=== PATIENT | female | born 1960 | race Caucasian/White ===

== ENCOUNTER 2017-01-01 07:29 | Inpatient (IN) | payer OTHER ==
[2016-12-30 11:25] LABS: Urine RBC None Seen /hpf (0 - 4)
[2016-12-30 11:34] LABS: Urine Bilirubin Negative (Negative); Urine Blood Negative /uL (Negative); Urine Color Straw (Yellow); Urine Glucose Normal (Normal); Urine Ketone Negative (Negative); Urine Nitrite Negative (Negative); Urine Squamous Epithelial Cell FEW /hpf (<5); Urine Urobilinogen Normal (Negative)
[2016-12-30 11:52] LABS: Basophils # (auto) 0 uL; Basophils % (auto) 0.3 % (0.0-2.0); CONDITION Y; Eosinophils # (auto) 0.1 uL; Eosinophils % (auto) 2.1 % (0.0-7.0); Hematocrit 48.1 % (36.0-46.0); Lymphocytes # (auto) 1.4 uL; Lymphocytes % (auto) 19.7 % (10.0-50.0); Mean Corpuscular Hemoglobin 32.6 pg (28.0-32.0); Mean Corpuscular Hgb Conc. 34.6 g/dL (32.0-36.0); Mean Corpuscular Volume 94.1 fL (80.0-100.0); Mean Platelet Volume 9.1 fL (7.4-10.4); Monocytes # (auto) 0.4 uL; Monocytes % (auto) 5.7 % (0.0-12.0); Neutrophils % (auto) 72.2 % (37.0-80.0); Platelet Count (auto) 255 10^3/uL (140-450); Red Cell Distribution Width 13.7 % (11.6-16.0); White Blood Cell 6.9 10^3/uL (4.4-10.8)
[2016-12-30 11:53] LABS: Hemoglobin 16.5 g/dL (12.2-16.2)
[2016-12-30 12:08] LABS: INR 0.95 (0.9-1.15); Partial Thromboplastin Time 26.6 sec (22.64-33.71); Prothrombin Time 10.4 sec (9.37-12.3)
[2016-12-30 12:09] LABS: Albumin 4.4 g/dL (3.4-5.0); BUN/Creatinine Ratio 14.1; Bilirubin, Total 0.9 mg/dL (0.2-1.0); Calcium 8.9 mg/dL (8.5-10.1); Total Protein 8.2 g/dL (6.4-8.2)
[~2017-01-01] VITALS: Ht 165.1 cm; Wt 58.0 kg
[2017-01-01] MEDS ORDERED: ceFAZolin 1GM/50ML D5W 50 ML IV ONE (08:51)
[2017-01-01] MEDS ORDERED: MEPERIDINE HCL (50 MG/ML) 1 ML VIAL ONE ×2 (09:31→10:28)
[2017-01-01] MEDS ORDERED: MIDAZOLAM HCL 1MG/1ML-2 ML VIAL ONE ×3 (09:31→14:16)
[2017-01-01] MEDS ORDERED: fentaNYL CITRATE 100 MCG/2 ML VL ONE ×3 (09:31→14:10)
[2017-01-01] MEDS ORDERED: PROPOFOL 10 MG/ML 20 ML IV ONE ×3 (09:31→14:13)
[2017-01-01] MEDS ORDERED: ONDANSETRON HCL 4 MG/2 ML VIAL ONE ×2 (09:31→10:28)
[2017-01-01] MEDS ORDERED: SODIUM CHLORIDE LOCK 10 ML ONE (09:31)
[2017-01-01] MEDS ORDERED: LIDOCAINE 1% HCL (LOCAL ANESTH.) INJ 20ML MDV ONE (09:51)
[2017-01-01] MEDS ORDERED: LIDOCAINE W/ EPINEPHRINE 1 % INJ 30ML ONE (10:22)
[2017-01-01] MEDS ORDERED: BUPIVACAINE W/ EPINEPH 0.5% MPF 30ML VIAL IJ ONE (10:22)
[2017-01-01] MEDS ORDERED: BUPIVACAINE 0.25% INJ 50ML VIAL ONE (10:23)
[2017-01-01] MEDS ORDERED: BUPIVACAINE 0.5% P/F INJ 10 ML VIAL ONE (10:23)
[2017-01-01] MEDS ORDERED: LIDOCAINE HCL (LOCAL ANESTH.) 0.5 % 50ML MDV IJ ONE (10:23)
[2017-01-01] MEDS ORDERED: BUPIVACAINE W/ EPINEPH 0.25% INJ 50ML MDV ONE (10:23)
[2017-01-01] MEDS ORDERED: ceFAZolin 1GM VL ONE (10:45)
[2017-01-01] MEDS ORDERED: METOCLOPRAMIDE HCL 5MG/ml INJ 2ml VIAL IV ONE (11:00)
[2017-01-01] MEDS: KETOROLAC TROMETH 30 MG/ML 1ML VIAL IV ONE ×2 (11:00→12:00)
[2017-01-01] MEDS ORDERED: IPRATROPIUM BROM 0.5 MG/2.5ML INH SOL ONE (11:52)
[2017-01-01] MEDS ORDERED: ALBUTEROL SULF 2.5 MG/0.5ML(0.5%) NEB SOLN ONE (11:52)
[2017-01-01] MEDS ORDERED: ALBUTEROL SULF 2.5 MG/0.5ML(0.5%) NEB SOLN NEB ONE (12:00)
[2017-01-01] MEDS ORDERED: IPRATROPIUM BROM 0.5 MG/2.5ML INH SOL NEB ONE (12:00)
[2017-01-01] MEDS: HYDROmorphone HCL 2 MG/ML VL IV PRN ×4 (12:14→12:50)
[2017-01-01] MEDS ORDERED: NITROGLYCERIN 0.4 MG SL TAB SL PRN (13:00)
[2017-01-01] MEDS ORDERED: MORPHINE SULF INJ 2 MG/ML SYRINGE 1ML IV PRN (13:00)
[2017-01-01] MEDS ORDERED: ONDANSETRON HCL 4 MG/2 ML VIAL IV PRN (15:30)
[2017-01-01] MEDS: MORPHINE SULF INJ 2 MG/ML SYRINGE 1ML IV PRN ×2 (16:43→21:01)
[2017-01-01] MEDS: IPRATROPIUM BROM 0.5 MG/2.5ML INH SOL NEB SCH (20:11)
[2017-01-01] MEDS: ALBUTEROL SULF 2.5 MG/0.5ML(0.5%) NEB SOLN NEB SCH (20:11)
[2017-01-01 22:03] VITALS: BP 102/58
[2017-01-02] MEDS: ALBUTEROL SULF 2.5 MG/0.5ML(0.5%) NEB SOLN NEB SCH ×3 (01:16→11:55)
[2017-01-02] MEDS: IPRATROPIUM BROM 0.5 MG/2.5ML INH SOL NEB SCH ×3 (01:16→11:55)
[2017-01-02] MEDS: HYDROcodone-ACET 5/325MG TAB PO PRN ×2 (04:54→11:37)
[2017-01-02 05:14] LABS: Basophils # (auto) 0.1 uL; Basophils % (auto) 0.6 % (0.0-2.0); CONDITION Y; Eosinophils # (auto) 0 uL; Eosinophils % (auto) 0.1 % (0.0-7.0); Hemoglobin 13.5 g/dL (12.2-16.2); Lymphocytes # (auto) 0.9 uL; Lymphocytes % (auto) 10.6 % (10.0-50.0); Mean Corpuscular Hgb Conc. 33.6 g/dL (32.0-36.0); Mean Corpuscular Volume 95.2 fL (80.0-100.0); Mean Platelet Volume 8.9 fL (7.4-10.4); Monocytes # (auto) 0.4 uL; Monocytes % (auto) 4.9 % (0.0-12.0); Neutrophils # (auto) 7.2 uL; Neutrophils % (auto) 83.8 % (37.0-80.0); Platelet Count (auto) 187 10^3/uL (140-450); Red Cell Distribution Width 14.1 % (11.6-16.0); White Blood Cell 8.5 10^3/uL (4.4-10.8)
[2017-01-02 05:37] LABS: BUN/Creatinine Ratio 17.8; Calcium 8.4 mg/dL (8.5-10.1); Potassium 4.2 mmol/L (3.5-5.1)
[2017-01-02 05:49] VITALS: BP 95/61
[2017-01-02] MEDS: MORPHINE SULF INJ 2 MG/ML SYRINGE 1ML IV PRN (06:55)
[2017-01-02 08:00] VITALS: BP 92/58
[2017-01-02 08:42] VITALS: BP 92/58
[2017-01-02 12:55] VITALS: BP 104/62
[2017-01-02 13:00] VITALS: BP 104/62
== END 2017-01-02 14:15 | disposition home or self-care (01) | DRG 352 ==
LOC: SUR 07:29 → WEST WING 07:30
PROVIDERS: ADMIT Surgery; ATTEND Internal Medicine
PROC: 0YQ50ZZ Repair Right Inguinal Region, Open Approach (ICD-10-PCS; principal; 2017-01-01 10:40)
DX: K40.90 Unilateral inguinal hernia, without obstruction or gangrene, not specified as recurrent (principal); J44.9 Chronic obstructive pulmonary disease, unspecified; F17.210 Nicotine dependence, cigarettes, uncomplicated
CPT/HCPCS: 36415; 80048; 80053; 81001; 85025; 85610; 85730; 94640; J0690; J1885; J2001; J2250; J2405; J2704; J3490

== ENCOUNTER 2017-04-26 12:27 | Emergency (ER) | payer OTHER ==
[~2017-04-26] VITALS: Ht 165.1 cm; Wt 52.2 kg
[2017-04-26 13:27] LABS: Basophils # (auto) 0.1 uL; Basophils % (auto) 1.1 % (0.0-2.0); Eosinophils # (auto) 0.3 uL; Eosinophils % (auto) 5.4 % (0.0-7.0); Lymphocytes # (auto) 1.5 uL; Lymphocytes % (auto) 24.6 % (10.0-50.0); Mean Corpuscular Hemoglobin 32.9 pg (28.0-32.0); Mean Corpuscular Volume 96.7 fL (80.0-100.0); Mean Platelet Volume 7.8 fL (6.9-10.8); Monocytes # (auto) 0.5 uL; Monocytes % (auto) 7.4 % (0.0-12.0); Neutrophils # (auto) 3.8 uL; Neutrophils % (auto) 61.5 % (37.0-80.0); Nucleated Red Blood Cells % 0.1 %; Platelet Count (auto) 200 10^3/uL (140-450); Red Cell Distribution Width 13.6 % (11.8-14.3); White Blood Cell 6.2 10^3/uL (4.4-10.8)
[2017-04-26 13:43] LABS: Albumin 4.1 g/dL (3.4-5.0); Anion Gap 6 (5-15); Aspartate Aminotransferase 13 U/L (15-37); Blood Urea Nitrogen 7 mg/dL (7-18); Carbon Dioxide 28 mmol/L (21-32); Chloride 104 mmol/L (98-107); GFR African American 111 mL/min; GFR Non-African American 92 mL/min; Glucose 85 mg/dL (74-106); Magnesium 2.6 mg/dL (1.6-2.6); Potassium 3.6 mmol/L (3.5-5.1); Sodium 138 mmol/L (136-145)
[2017-04-26 13:48] LABS: Alkaline Phosphatase 65 U/L (45-117); Bilirubin, Total 0.5 mg/dL (0.2-1.0); Total Protein 7.9 g/dL (6.4-8.2)
[2017-04-26 18:09] VITALS: BP 122/85
[2017-04-26 18:20] LABS: Urine Bilirubin Negative (Negative); Urine Blood Negative /uL (Negative); Urine Color Yellow (Yellow); Urine Glucose Normal (Normal); Urine Ketone Negative (Negative); Urine Mucus FEW (None Seen); Urine Nitrite Negative (Negative); Urine RBC <1 /hpf (0 - 4); Urine Squamous Epithelial Cell FEW /hpf (<5); Urine Urobilinogen Normal (Negative)
== END 2017-04-26 18:34 | disposition home or self-care (01) ==
LOC: ER 12:37
DX: J44.1 Chronic obstructive pulmonary disease with (acute) exacerbation (principal); J01.90 Acute sinusitis, unspecified; F17.210 Nicotine dependence, cigarettes, uncomplicated
CPT/HCPCS: 36415; 71020; 80053; 81001; 81002; 83735; 84484; 85025; 93005

== ENCOUNTER 2018-01-02 16:42 | Observation (INO) | payer OTHER ==
[~2018-01-02] VITALS: Ht 165.1 cm; Wt 62.6 kg
[2018-01-02 17:29] LABS: Basophils # (auto) 0.1 uL; Basophils % (auto) 1.2 % (0.0-2.0); Eosinophils # (auto) 0.4 uL; Eosinophils % (auto) 5.8 % (0.0-7.0); Hematocrit 44.8 % (36.0-46.0); Hemoglobin 15.2 g/dL (12.2-16.2); Lymphocytes # (auto) 1.6 uL; Lymphocytes % (auto) 21.6 % (10.0-50.0); Mean Corpuscular Volume 94.1 fL (80.0-100.0); Monocytes # (auto) 0.4 uL; Monocytes % (auto) 5.8 % (0.0-12.0); Neutrophils # (auto) 4.8 uL; Neutrophils % (auto) 65.6 % (37.0-80.0); Nucleated Red Blood Cells % 0.1 %; Platelet Count (auto) 221 10^3/uL (140-450); Red Blood Cells 4.76 10^6/uL (4.0-5.20); Red Cell Distribution Width 13.3 % (11.8-14.3); White Blood Cell 7.3 10^3/uL (4.4-10.8)
[2018-01-02 17:49] LABS: Alanine Aminotransferase 25 U/L (13-56); Albumin 3.9 g/dL (3.4-5.0); Anion Gap 9 (5-15); Aspartate Aminotransferase 21 U/L (15-37); BUN/Creatinine Ratio 17.8; Blood Urea Nitrogen 18 mg/dL (7-18); Calcium 8.6 mg/dL (8.5-10.1); Carbon Dioxide 26 mmol/L (21-32); Chloride 106 mmol/L (98-107); GFR African American 73 mL/min; GFR Non-African American 60 mL/min; Glucose 97 mg/dL (74-106); Magnesium 2.3 mg/dL (1.6-2.6); Potassium 3.8 mmol/L (3.5-5.1); Sodium 141 mmol/L (136-145)
[2018-01-02 17:55] LABS: Alkaline Phosphatase 80 U/L (45-117); Bilirubin, Total 0.5 mg/dL (0.2-1.0); Total Protein 7.8 g/dL (6.4-8.2)
[2018-01-02] MEDS ORDERED: ONDANSETRON HCL 4 MG/2 ML VIAL IV ONE (18:00)
[2018-01-02] MEDS ORDERED: MORPHINE SULF INJ 2 MG/ML SYRINGE 1ML IV ONE (18:00)
[2018-01-02] MEDS ORDERED: SODIUM CHLORIDE 0.9% 1,000 ML IVB ONE (19:36)
[2018-01-02] MEDS ORDERED: KETOROLAC TROMETH 30 MG/ML 1ML VIAL IV ONE (19:45)
[2018-01-02 20:04] LABS: Urine Bacteria FEW /hpf (None Seen); Urine Blood Negative /uL (Negative); Urine Specific Gravity 1.012 (1.001-1.035); Urine WBC 3 /hpf (0 - 5)
[2018-01-02 21:09] LABS: Amylase 48 U/L (25-115); Lipase 93 U/L (73-393)
[2018-01-02 21:50] VITALS: BP 109/79
== END 2018-01-02 21:57 | disposition home or self-care (01) | DRG 694 ==
LOC: ER 16:47 → MERGE 16:47 → OVERFLOW 16:48 → ER 21:49
PROVIDERS: ADMIT Family Medicine; ATTEND Family Medicine
DX: N20.0 Calculus of kidney (principal); F17.210 Nicotine dependence, cigarettes, uncomplicated; J45.909 Unspecified asthma, uncomplicated; Z87.442 Personal history of urinary calculi; Z82.49 Family history of ischemic heart disease and other diseases of the circulatory system
CPT/HCPCS: 36415; 71046; 74176; 80053; 81001; 82150; 83690; 83735; 84484; 85025; 93005; 96361; 96374; 96375; 99285; G0378; J1885; J2270; J2405; J7030

== ENCOUNTER → 2018-06-18 | Outpatient (CLI) | payer OTHER ==
[~2018-06-18] MED LIST: ALBUTEROL SULF 2.5 MG/0.5ML(0.5%) NEB SOLN ONE
== END | disposition home or self-care (01) ==
LOC: RT 08:27
PROVIDERS: ATTEND Internal Medicine Pulmonary Disease
DX: J44.9 Chronic obstructive pulmonary disease, unspecified (principal)
CPT/HCPCS: 94060; J7611

== ENCOUNTER → 2019-05-06 | Day surgery (SDC) | payer BC ==
[~2019-05-06] VITALS: Ht 165.1 cm; Wt 58.1 kg
[~2019-05-06] MED LIST changes: +ALBUAER3 IN; -ALBUTEROL SULF 2.5 MG/0.5ML(0.5%) NEB SOLN ONE; +BUPIVACAINE 0.5% P/F INJ 10 ML VIAL ONE; +FLUT1AER3 IN; +LIDOCAINE 1% HCL (LOCAL ANESTH.) INJ 20ML MDV ONE; +METHYLENE BLUE 0.5% 5MG/ML 10ml AMP IV ONE; +PROPOFOL 10 MG/ML 20 ML IV ONE; +ceFAZolin 1GM/50ML 100 ML IV ONE; +fentaNYL CITRATE 100 MCG/2 ML VL ONE
[2019-05-06] MEDS: HYDROmorphone HCL 2 MG/ML VL ONE ×4 (15:13→15:49)
[2019-05-06 16:15] VITALS: BP 127/77
== END | disposition home or self-care (01) ==
LOC: SUR 09:59
PROVIDERS: ATTEND Surgery
DX: C50.412 Malignant neoplasm of upper-outer quadrant of left female breast (principal); J44.9 Chronic obstructive pulmonary disease, unspecified; F17.210 Nicotine dependence, cigarettes, uncomplicated; Z79.899 Other long term (current) drug therapy; Z17.0 Estrogen receptor positive status [ER+]; Z98.890 Other specified postprocedural states
CPT/HCPCS: 19301; 38525; 88305; 88331; 88342; J0690; J1170; J2001; J2704; J3010; J3490; J7030; Q9968

== ENCOUNTER → 2019-05-06 | Outpatient (CLI) | payer BC, OTHER ==
[~2019-05-06] VITALS: Ht 30.5 cm; Wt 0.5 kg
[~2019-05-06] MED LIST changes: -BUPIVACAINE 0.5% P/F INJ 10 ML VIAL ONE; +HEPARIN SODIUM (PORCINE) 5000 UNITS/ML 1ML VIAL ONE; +HYDROmorphone HCL 2 MG/ML VL IV PRN; -LIDOCAINE 1% HCL (LOCAL ANESTH.) INJ 20ML MDV ONE; -METHYLENE BLUE 0.5% 5MG/ML 10ml AMP IV ONE; +ONDANSETRON HCL 4 MG/2 ML VIAL IV PRN; -PROPOFOL 10 MG/ML 20 ML IV ONE; -ceFAZolin 1GM/50ML 100 ML IV ONE; +ePHEDrine SULFATE 50 MG/ML AMP IV PRN; -fentaNYL CITRATE 100 MCG/2 ML VL ONE; +hydrALAZINE HCL 20 MG/ML VL IV PRN
== END | disposition home or self-care (01) ==
LOC: XY 10:14
DX: C50.612 Malignant neoplasm of axillary tail of left female breast (principal); N63.32 Unspecified lump in axillary tail of the left breast
CPT/HCPCS: 78195; A9541; J0360; J1170; J1644

== ENCOUNTER 2025-02-28 17:58 | Emergency (ER) | payer BC ==
[~2025-02-28] VITALS: Ht 165.1 cm; Wt 62.6 kg
[~2025-02-28 17:58] MED LIST changes: -HEPARIN SODIUM (PORCINE) 5000 UNITS/ML 1ML VIAL ONE; -HYDROmorphone HCL 2 MG/ML VL IV PRN; -ONDANSETRON HCL 4 MG/2 ML VIAL IV PRN; -ePHEDrine SULFATE 50 MG/ML AMP IV PRN; -hydrALAZINE HCL 20 MG/ML VL IV PRN
--- NOTE | 2025-02-28 19:12 | ED.PDOC ---
Musculoskeletal HPI Comments BEKAH: 64 y/o F presents with c/c of left leg and foot swelling Endorsement of 7x day history of symptoms following initial, unprovoked and atraumatic onset. Significant history of COPD and tobacco abuse. Patient also reports mild acute shortness of breath on chronic condition. Sent to r/o DVT in left leg HPI: Poor Historian. 64-year-old female presents to emergency department for a day history of left lower extremity swelling foot swelling puffiness edema. Patient has history of COPD and tobacco abuse half mild acute shortness of breath on chronic. Patient was sent here to rule out DVT of her left lower extremity. Past Medical History: COPD, cigarette nicotine dependence, tuberculosis, meningitis, left breast cancer - in remission Past Surgical History: right foot surgery, 2x breast mass lumpectomy, lymph node removal, 2x inguinal hernia repairs REVIEW OF SYSTEMS: CONSTITUTIONAL: Denies acute: fever, diaphoresis, chills, generalized weakness. HEAD: Denies acute: headache, photophobia Eyes: Denies acute: Double vision, vision loss, eye pain, eye discharge. EARS: Denies acute: tinnitus, hearing loss, ear discharge, ear pain, THROAT: Denies acute: sore throat, swelling, difficulty swallowing , pain with swallowing, change in voice. NECK: Denies acute: neck pain, neck swelling, stiff neck. HEART: Denies acute : chest pain, palpitations, LUNGS: Denies acute: SOB, wheezing, cough, hemoptysis ABDOMEN: Denies acute: abdominal pain, Nausea, Vomiting, diarrhea, melena , hematemesis, hematochezia SKIN: Denies acute: rash, redness, lesions, itchiness. EXTREMITIES: Denies acute: calf pain, numbness, tingling, weakness, Denies acute: Low back pain. Neuro: Denies acute: focal neurological deficit, motor or sensory focal neurological deficit, tremors, seizure like activity, confusion, dizziness, change in mental status, loss of bowel or bladder function, cauda equina like symptoms. : Denies acute: dysuria, hematuria, flank pain, increase in urinary frequency. PSYCH: Denies acute: hallucination, suicidal ideation, homicidal ideation. FEMALE: Denies acute: abnormal vaginal bleeding, foul odor, unusual discharge. PHYSICAL EXAM: General: ----no----acute distress, awake and alert. Head: normocephalic, atraumatic. Neck: supple, trachea is midline, no swelling. Throat: Normal phonation. Eyes:, no erythema, no purulent discharge, no proptosis, no icterus. Heart: regular rate, regular rhythm, no significant murmur appreciated. Lungs: no apparent respiratory distress, Able to speak in full sentences. slight wheezing, no rhonchi, no crackles. No stridors Abdomen: non tender to palpation, non distended, soft, no guarding, no rebound, + bowel sounds. Neuro: Awake, Alert, oriented to name, self, situation, follows commands GCS=15. Speech is normal. Skin: no petechia, no purpura, no cyanosis, non-pale, not jaundice. Lower extremities: Left lower extremity --1/4 foot- Pitting edema no deformity, no focal swelling, Makes eye contact. moves all four extremities. Face: no apparent facial droop. Ambulating in the ED independently. ED COURSE: DISCLAIMER: This medical document was created using an electronic medical record system with voice recognition software and computerized dictation system. Although this document has been carefully reviewed, there might still be some phonetic and typographical errors. Occasional wrong-word or "sound-alike" substitutions may have occurred due to the inherent limitations of voice recognition software. These areas are purely typographical due to imperfections of the software programs and do not reflect any compromise in the patient's medical care. Please read the chart carefully and recognize, using context, where these substitutions have occurred. Chief Complaint: Lower Extremity Time Seen by MD: 19:00 Primary Care Provider: DR SIERRA Reviewed Notes: Nurses Notes, Medications, Allergies Allergies: Coded Allergies: NO KNOWN ALLERGIES (Unverified , 04/30/19) Home Meds Active Scripts Dextromethorphan-Guaifenesin (Mucinex Dm Maximum Streng) 1 Tab Tab, 1 TAB PO BID, #30 TAB Prov:ROBERTO LOPEZ MD 03/01/25 Levofloxacin Hemihydrate (LEVAQUIN 500 MG) 500 Mg Tab, 1 TAB PO DAILY, #7 TAB Prov:ROBERTO LOPEZ MD 03/01/25 Methylprednisolone (Medrol Dosepak) 4 Mg Chilo, 4 MG PO UD, #21 TAB UAD Prov:MAICOLROBERTO BARBA MD 03/01/25 Reported Medications Albuterol Sulfate (VENTOLIN MDI) 90 Mcg Ih, 2 PUFF IN PRN, INH 04/30/19 Nplzdsaplwm-Pfnahscwtfdo-Gzemt (Trelegy Ellipta 100-62.5-25 Mcg/INH) 1 Aer Aer, 1 AER IN DAILY, AER 04/30/19 Information Source: Patient Mode of Arrival: Ambulatory Past Medical History PAST MEDICAL HISTORY: COPD Surgical History: Hernia Repair (2x) REINFORCING ROD LAYER History: No Pertinent REINFORCING ROD LAYER History Family History Family History: No family hx of Cancer Social History Smoker: Cigarettes, Greater Than 1 Pack/Day Alcohol: Occasionally Drugs: Denies Drug Use Lives In: Home Was a procedure done? Was a procedure done?: No Differential Diagnosis EXT Differential Diagnosis: Other (Leg swellingDdx include but not limited to DVT, ischemic limb, pitting edema, volume overload, CHF, cellulitis, hematoma, compartment syndrome, dependent edema, venous stasis. Necrotizing fasciitis, abscess, infestation.) X-Ray, Labs, Meds, VS Vital Signs Date Time Temp Pulse Resp B/P (MAP) Pulse Ox O2 Delivery O2 Flow Rate FiO2 03/01/25 03:07 97.9 82 17 112/73 (86) 92 97.9 03/01/25 03:05 19 95 Nasal Cannula* 4 36 03/01/25 01:29 18 92 Nasal Cannula* 4 36 03/01/25 00:25 98.2 97 18 127/82 (97) 94 98.2 03/01/25 00:25 83 20 96 Room Air 02/28/25 19:34 22 90 Room Air* 0 21 02/28/25 18:01 98.0 80 16 144/85 97 98.0 Lab Test 03/01/25 01:02 02/28/25 18:43 Range/Units Blood Gas Specimen Type Arterial Blood Gas Sample Site Right radial Blood Gas Patient Temperature 37.0 Arterial Blood Date Drawn [id number] Arterial Blood pH 7.395 7.350-7.450 Arterial Blood Partial Pressure CO2 47.6 H 32.0-45.0 mmHg Arterial Blood Partial Pressure O2 40.8 *L 83.0-108.0 mmHg Arterial Blood HCO3 28.5 H 21.0-28.0 mmol/L Arterial Blood Oxygen Saturation 75.7 *L 94.0-98.0 % Arterial Blood Base Excess 2.6 -2.0-3.0 mmol/L Arterial Blood Oxyhemoglobin 68.4 L 94.0-98.0 % Arterial Blood Carboxyhemoglobin 9.2 *H 0.5-1.5 % Arterial Blood Methemoglobin 0.4 0.0-1.5 % Christian Test Yes Blood Gas Total Hemoglobin 18.70 *H 12.0-16.0 g/dL Blood Gas Modality Room air FiO2 % 21.0 Blood Gas Critical Value Read Back Yes Blood Gas Notified Whom Markus vieira md Blood Gas Notified Time [id number] Blood Gas Notified By Julio major rrt White Blood Count 6.2 4.4-10.8 10^3/uL Red Blood Count 5.77 H 4.0-5.20 10^6/uL Hemoglobin 18.5 H 12.2-16.2 g/dL Hematocrit 54.8 H 36.0-46.0 % Mean Corpuscular Volume 95.0 80.0-100.0 fL Mean Corpuscular Hemoglobin 32.0 28.0-32.0 pg Mean Corpuscular Hemoglobin Concent 33.7 32.0-36.0 g/dL Red Cell Distribution Width 15.0 H 11.8-14.3 % Platelet Count 193 140-450 10^3/uL Mean Platelet Volume 8.4 6.9-10.8 fL Neutrophils (%) (Auto) 72.6 37.0-80.0 % Lymphocytes (%) (Auto) 18.2 10.0-50.0 % Monocytes (%) (Auto) 7.1 0.0-12.0 % Eosinophils (%) (Auto) 1.4 0.0-7.0 % Basophils (%) (Auto) 0.7 0.0-2.0 % Neutrophils # (Auto) 4.5 1.6-8.6 10 ^3/uL Lymphocytes # (Auto) 1.1 0.4-5.4 10 ^3/uL Monocytes # (Auto) 0.4 0-1.3 10 ^3/uL Eosinophils # (Auto) 0.1 0-0.8 10 ^3/uL Basophils # (Auto) 0 0-0.2 10 ^3/uL Nucleated Red Blood Cells 0.8 % D-Dimer, Quantitative 2.04 H 0.0-0.49 mg/L FEU Sodium Level 142 136-145 mmol/L Potassium Level 3.9 3.5-5.1 mmol/L Chloride Level 103 98-107 mmol/L Carbon Dioxide Level 32 H 20-31 mmol/L Anion Gap 7 5-15 Blood Urea Nitrogen 8 L 9-23 mg/dL Creatinine 0.65 0.550-1.02 mg/dL Glomerular Filtration Rate Calc 98 >90 mL/min BUN/Creatinine Ratio 12.3 10.0-20.0 Serum Glucose 104 74-106 mg/dL Lactic Acid Level 1.2 0.4-2.0 mmol/L Calcium Level 8.9 8.7-10.4 mg/dL Total Bilirubin 0.7 0.2-1.0 mg/dL Aspartate Amino Transferase (AST) 39 13-40 U/L Alanine Aminotransferase (ALT) 31 7-40 U/L Alkaline Phosphatase 79 46-116 U/L C-Reactive Protein High Sensitivity 0.90 <1.0 mg/dL B-Type Natriuretic Peptide 444.84 0-100 pg/mL Total Protein 6.9 5.7-8.2 g/dL Albumin 4.2 3.2-4.8 g/dL Current Medications Medications (Trade) Dose Ordered Sig/Lia Route Start Time Stop Time Status Last Admin Albuterol (Ventolin Medneb) 2.5 mg ONCE ONCE NEB 02/28/25 19:15 02/28/25 19:16 DC 02/28/25 19:33 Ipratropium [place] (Atrovent Medneb) 1 mg ONCE ONCE NEB 02/28/25 19:15 02/28/25 19:16 DC 02/28/25 19:33 Methylprednisolone Sodium Succinate (Solu Medrol) 125 mg ONCE ONCE IV 02/28/25 19:15 02/28/25 19:16 DC 03/01/25 00:59 Albuterol (Ventolin Medneb) 2.5 mg ONCE ONCE NEB 03/01/25 01:15 03/01/25 01:22 DC 03/01/25 01:46 Ipratropium [place] (Atrovent Medneb) 0.5 mg ONCE ONCE NEB 03/01/25 01:15 03/01/25 01:22 DC 03/01/25 01:46 Levofloxacin (Levaquin Tablet) 500 mg ONCE ONCE PO 03/01/25 01:30 03/01/25 01:39 DC 03/01/25 02:[address] [address] Ph: [phone] DIAGNOSTIC IMAGING Diagnostic Imaging Report : [id number] Signed PATIENT: ABDIRAHMAN GODFREY ACCT: [id number] UNIT: [id number] : 1960 LOC: ER ROOM / BED: / AGE / SEX: 64 / F ADM STATUS: REG ER SERVICE 35 ORDERING PHYSICIAN: YEIMI VIEIRA DO PROCEDURE(s): LLDVT - LT Lower DVT REASON: red swelling ORDER NUMBER(s): [id number], ACCESSION NUMBER(s): [id number] CLINICAL HISTORY: red swelling TECHNIQUE: Color and duplex doppler imagine of the left lower extremity veins was performed. Vessel compression if possible was also performed. COMPARISON: None FINDINGS: Left common femoral vein: Normal compressibility and flow. Left superficial femoral vein: Normal compressibility and flow. Left popliteal vein: Normal compressibility and flow. Proximal calf veins are normally compressible. IMPRESSION: NO SONOGRAPHIC EVIDENCE FOR DEEP VENOUS THROMBOSIS IN THE LEFT LOWER EXTREMITY VEINS. ATED BY: DANIELA THAO MD DICTATED DATE/TIME: 02/28/252007 SIGNED BY: DANIELA THAO MD SIGNED DATE/TIME: 02/28/252007 CC: [address] [address] Ph: [phone] DIAGNOSTIC IMAGING Diagnostic Imaging Report : [id number] Signed PATIENT: ABDIRAHMAN GODFREY ACCT: [id number] UNIT: [id number] : 1960 LOC: ER ROOM / BED: / AGE / SEX: 64 / F ADM STATUS: REG ER SERVICE 16 ORDERING PHYSICIAN: YEIMI VIEIRA DO PROCEDURE(s): CXRP - CHEST PORTABLE REASON: sob ORDER NUMBER(s): [id number], ACCESSION NUMBER(s): [id number] CHEST RADIOGRAPH Indication: sob Technique: Single frontal view of the chest was obtained Comparison: None FINDINGS: Lines and Tubes: None Lungs: Bilateral apical pleural disease. There are no prior studies for comparison distinguished acute versus chronic changes. Pleura: No effusion. No pneumothorax. Cardiomediastinal contours: Unremarkable Bones: No acute osseous abnormality. IMPRESSION: 1. Bilateral apical pleural disease. 2. 2.4 cm nodular density upper lung field. Can not exclude pulmonary nodule consider CT chest for further evaluation. ATED BY: VALERIA AYOUB Jr., DO DICTATED DATE/TIME: 02/28/252146 SIGNED BY: VALERIA AYOUB Jr., SIGNED DATE/TIME: 02/28/252146 CC: Time of 1ST Reevaluation: 19:30 Reevaluation 1ST: Unchanged Time of 2ND Reevaluation: 00:48 (I was notified by the nurse that the patient pulse ox was 70% at room air. They placed her on 4 L supplemental oxygen which improved her to 95%. I will admit the patient for further evaluation and treatment.) Time of 3RD Reevaluation: 01:04 (The case was discussed with the admitting team (HPI, physical exam, labs and diagnostic tests that were available at the time of disposition, ED course, treatment plan) on the phone. They agreed to evaluate the patient and assume care of this patient from this point forward. --- Geovanni) Patient Education/Counseling: Diagnosis, Treatment Family Education/Counseling: No Family Present Comments MDM: patient presented with the above HPI.---left leg swelling---workup was initiated. patient was found with the above mentioned diagnosis. the following medications were ordered: please refer to order lists of meds and tests obtained by myself Dr. Vieira. Patient ED course and VS have been stabilized. Patient has been reassessed in the ED and remained in a stable condition. Pertinent incidental findings were discussed with the patient and/or family. Patient/family voices understanding and is agreeable with plan. Patient has been observed in the ED adequate length of time to insure improvement/stability. Escalation of care considered: Consideration of escalation to observation or admission Patient was found with severe hypoxemia requiring supplemental oxygen. Both DVT and pulmonary embolus were ruled out. Patient was placed for admission to the medicine team for further evaluation and treatment of their presentation. Later I was notified that the medicine team/hospitalist has discharge the patient from the ER and arrange for outpat ient home oxygen supplement. Please see their consultation notes and discharge medications and plan. All the reports of any imaging studies that were ordered by myself were reviewed by myself. Sepsis Sepsis Reasesment Focused Exam Orders: Laboratory Tests 02/28/25 18:43: Lactic Acid Level 1.2 Departure 1 Departure Time of Disposition: 23:59 Impression: Primary Impression: Left leg swelling Additional Impressions: Polycythemia Hypoxemia COPD exacerbation Disposition: ADMITTED INPATIENT Admit to: Tele Condition: Guarded Additional Instructions: e-Prescriptions Dextromethorphan-Guaifenesin (Mucinex Dm Maximum Streng) 1 Tab Tab 1 TAB PO BID, #30 TAB Prov: ROBERTO LOPEZ MD 03/01/25 Levofloxacin Hemihydrate (LEVAQUIN 500 MG) 500 Mg Tab 1 TAB PO DAILY, #7 TAB Prov: ROBERTO LOPEZ MD 03/01/25 Methylprednisolone (Medrol Dosepak) 4 Mg Chilo 4 MG PO UD, #21 TAB UAD Prov: ROBERTO LOPEZ MD 03/01/25 Discharged With: Self Critical Care Note Critical Care Time?: Yes (45 min-critical care time only) Stability Stability form required: No I personally scribed for YEIMI VIEIRA DO ([email or web address]) on 02/28/25 at 19:12. Electronically submitted by Nitish Roland ([email or web address]). I personally scribed for YEIMI VIEIRA DO ([email or web address]) on 02/28/25 at 19:23. Electronically submitted by Nitish Roland ([email or web address]). I personally scribed for YEIMI VIEIRA DO ([email or web address]) on 02/28/25 at 21:15. Electronically submitted by Nitish Roland ([email or web address]). I personally scribed for YEIMI VIEIRA DO ([email or web address]) on 02/28/25 at 22:37. Electronically submitted by Nitish Roland ([email or web address]). YEIMI VIEIRA DO Feb 28, 2025 19:12
[2025-02-28 19:31] LABS: Hematocrit 54.8 % (36.0-46.0); Hemoglobin 18.5 g/dL (12.2-16.2); Mean Corpuscular Hemoglobin 32.0 pg (28.0-32.0); Mean Corpuscular Volume 95.0 fL (80.0-100.0); Nucleated Red Blood Cells % 0.8 %
[2025-02-28] MEDS: ALBUTEROL SULF 2.5 MG/0.5ML(0.5%) NEB SOLN NEB ONE (19:33)
[2025-02-28] MEDS: IPRATROPIUM BROM 0.5 MG/2.5ML INH SOL NEB ONE (19:33)
[2025-02-28 19:51] LABS: Alanine Aminotransferase 31 U/L (7-40); Albumin 4.2 g/dL (3.2-4.8); Alkaline Phosphatase 79 U/L (46-116); Anion Gap 7 (5-15); BUN/Creatinine Ratio 12.3 (10.0-20.0); Bilirubin, Total 0.7 mg/dL (0.2-1.0); Calcium 8.9 mg/dL (8.7-10.4); Chloride 103 mmol/L (98-107); Glucose 104 mg/dL (74-106); Potassium 3.9 mmol/L (3.5-5.1); Sodium 142 mmol/L (136-145); Total Protein 6.9 g/dL (5.7-8.2)
[2025-02-28 19:52] LABS: Blood Urea Nitrogen 8 mg/dL (9-23); Carbon Dioxide 32 mmol/L (20-31)
--- NOTE | 2025-02-28 20:10 | DVH ---
CLINICAL HISTORY: red swelling TECHNIQUE: Color and duplex doppler imagine of the left lower extremity veins was performed. Vessel c ompression if possible was also performed. COMPARISON: None FINDINGS: Left common femoral vein: Normal compressibility and flow. Left superficial femoral vein: Normal compressibility and flow. Left popliteal vein: Normal compressibility and flow. Proximal calf veins are normally compressible. IMPRESSION: NO SONOGRAPHIC EVIDENCE FOR DEEP VENOUS THROMBOSIS IN THE LEFT LOWER EXTREMITY VEINS.
--- NOTE | 2025-02-28 21:50 | DVH ---
CHEST RADIOGRAPH Indication: sob Technique: Single frontal view of the chest was obtained Comparison: None FINDINGS: Lines and Tubes: None Lungs: Bilateral apical pleural disease. There are no prior studies for comparison distinguished acu te versus chronic changes. Pleura: No effusion. No pneumothorax. Cardiomediastinal contours: Unremarkable Bones: No acute osseous abnormality. IMPRESSION: 1. Bilateral apical pleural disease. 2. 2.4 cm nodular density upper lung field. Can not exclude pulmonary nodule consider CT chest for fu rther evaluation.
[2025-02-28] MEDS: IOHEXOL 350 MG/ML 100ML IJ ONE (22:28)
--- NOTE | 2025-02-28 23:34 | DVH ---
CTA Chest with intravenous contrast INDICATION: sob COMPARISON: Same day chest radiograph TECHNIQUE: Multidetector spiral CTA of the chest was performed of the chest with intravenous contrast . PULMONARY ANGIOGRAPHY PROTOCOL was utilized using a bolus-tracking technique centered on the main p ulmonary artery. Axial, coronal and sagittal multiplanar and MIP reformats were performed. Radiation Dose : 1. Chest: CTDI volume is 26.64 mGy. Dose-length product is 597.12 mGy*cm The dose indicators for CT are the volume Computed Tomography (CT) Dose Index (CTDIvol) and the Dose Length Product (DLP), and are measured in units of mGy and mGy-cm, respectively. These indicators are not patient dose, but values generated from the CT scanner acquisition factors. The report includes radiation exposure data for exposures received during this examination. Findings: Pulmonary arteries: Technical factors adequate for assessment of the level of the mid subsegmental ar teries. No filling defect. Main pulmonary artery measures 3.4 cm in diameter. Lower neck: Unremarkable. Lungs: Thick-walled, masslike cavities in the [id number]-right lung apex. Multiple additional solid-appearing nodules in both lungs, direct marketing representative in the right upper lobe measuring 10 x 7 mm. Di ffuse pleural parenchymal reticulonodular opacities, apical predominant centrilobular and paraseptal emphysema, and scattered bronchiectasis. Pleura: No effusion or pneumothorax. Heart/Vascular Structures: Normal heart size. No pericardial effusion. Mild aortic atherosclerosis. Lymph Nodes: No adenopathy Musculoskeletal: No acute osseous abnormality. Soft tissues: Left breast postsurgical change. Upper abdomen: Small amount of contrast bolus reflux within the hepatic veins. IMPRESSION: 1. No pulmonary embolism to the level of the mid subsegmental arteries. 2. Central pulmonary artery enlargement and contrast bolus reflux suggestive of a degree of pulmonary hypertension. Heart size is within normal limits. 3. Extensive pulmonary parenchymal abnormalities including emphysema and fibrosis likely related to interstitial lung disease. Masslike cavities in the lung apices and multiple additional pulmonary nod ules. Outpatient pulmonology consult is recommended.
[2025-03-01] MEDS: methylPREDNISolone SOD SUCC 125 MG/2 ML VL IV ONE (00:59)
[2025-03-01 01:12] LABS: Base Excess 2.6 mmol/L (-2.0-3.0)
[2025-03-01] MEDS ORDERED: METH4PAK PO (01:30)
[2025-03-01] MEDS ORDERED: LEVO500T91 PO (01:30)
[2025-03-01] MEDS: ALBUTEROL SULF 2.5 MG/0.5ML(0.5%) NEB SOLN NEB ONE (01:46)
[2025-03-01] MEDS: IPRATROPIUM BROM 0.5 MG/2.5ML INH SOL NEB ONE (01:46)
[2025-03-01] MEDS ORDERED: DEXT60TA4 PO (02:24)
[2025-03-01] MEDS: levoFLOXacin 500 MG TAB PO ONE (02:38)
[2025-03-01 03:05] VITALS: RESP 19; O2SAT 95
[2025-03-01 03:07] VITALS: BP 112/73; PULSE 82; RESP 17; TEMP 97.9; O2SAT 92
--- NOTE | 2025-03-03 17:37 | DVHINCON2 ---
DATE OF CONSULTATION: 02/28/2025 This is a late note entry for the date of 02/28/2025. CHIEF COMPLAINT: Coming in for left lower extremity pain and swelling. HISTORY OF PRESENT ILLNESS: This is a 64-year-old female with significant past medical history for COPD, history of breast cancer, status post lumpectomy 5 years ago, status post radiation therapy with 36 sessions, who presents here to the Emergency Room due to left lower extremity pain and swelling. The patient apparently has had some swelling of her left foot and ankle for about 7 days, came in for evaluation as she has been having also some pain there. The patient was evaluated with an ultrasound in the ED and was ruled out for DVT. The patient, however, also has some minimal shortness of breath. She says she is chronically short of breath, is a nicotine user of over 40 years. She is currently a pack a day smoker. She says she typically runs low on her oxygen. She does see a special effects person on an outpatient basis. She does not use oxygen at home. She says at times she sats in the 80s and has had occurrences where she was in the 70s pulse ox. She says she has not had any shortness of breath symptoms, however, was hypoxic when presenting here. The patient denies any fevers or chills. She does have a chronic cough and phlegm, which she says is unchanged. No nausea. No vomiting. No chest pain. No palpitations. No diarrhea or constipation. No bloody or tarry stools. No urinary frequency, urgency, or burn sensation. The patient is not using extra respiratory muscles of breathing and is talking in full sentences. PAST MEDICAL HISTORY: COPD, history of breast cancer, status post lumpectomy and status post radiation therapy to the left lung, left breast cancer history. PAST SURGICAL HISTORY: Had left breast lumpectomy procedure, abdominal hernia repair surgery. SOCIAL HISTORY: Tobacco, uses about a half a pack to a pack a day since she has been 20 years old. Occasional alcohol. No illicit drugs. MEDICATIONS AT HOME: Per medical reconciliation. MEDICATION ALLERGIES: No known drug allergies. REVIEW OF SYSTEMS: A 10-point review of systems was covered with the patient and was negative with the exception to what was present in history of present illness. PHYSICAL EXAMINATION: VITAL SIGNS: Temperature 97.9, pulse rate 82, respiratory rate of 17, blood pressure of 112/73. The pulse ox was about 95% on 4 liters of nasal cannula. GENERAL: Seems to be alert and oriented x 4, not in acute distress female, sitting up in a chair, not using extra respiratory muscles of breathing. HEENT: Normocephalic, atraumatic. Extraocular muscles were intact. Pupils are equally round and reactive to light and accommodation. Mucous membranes seem to be moist. CARDIOVASCULAR: S1, S2 positive. Regular rate and rhythm. No rubs, gallops, or murmurs. LUNGS: Seem to be with diminished breath sounds bilaterally; however, no wheezing, rhonchi, or rales appreciated. ABDOMEN: Seems to be soft, nontender, and nondistended. Positive bowel sounds. No guarding. No rebound. EXTREMITIES: Lower extremities without lower extremity edema, clubbing or cyanosis. NEUROLOGIC: No focal deficits. Cranial nerves testing 2-12 overall seems to be intact. LABORATORY WORKUP: Shows a white count of 6.2, H and H of 18.5 and 54.8, platelet count of 193,000. No left shift. Sodium is 142, potassium 3.9, chloride ____, carbon dioxide of 32, anion gap of 7, BUN of 8, creatinine 0.65, serum glucose of 104. Lactic acid 1.2. Calcium 8.9. AST of 39, ALT of 31, alkaline phosphatase of 79. C-reactive protein of 0.90. BNP of 444.84. Albumin of 4.2. D-dimer of 2.04. Blood gas was completed. It shows a pH of 7.395, pCO2 of 47.6, pO2 of 40.8, bicarb of 28.5 with O2 sats of ____ on room air, FiO2 of 21%. IMAGING: Extremity venous Doppler ultrasound shows no sonographic evidence for left deep venous thrombosis in the left lower extremity. Chest x-ray shows bilateral apical pleural disease, 2.4 cm nodular density upper lung field, cannot exclude pulmonary nodule; consider CT chest for further evaluation. CT angiogram of the chest was also completed. Impression: No pulmonary embolism to the level of the mid subsegmental artery, central pulmonary artery enlargement, and contrast bolus reflux suggestive of degree of pulmonary hypertension. Heart size is within normal limits. Extensive pulmonary parenchymal abnormalities including emphysema and fibrosis likely related to interstitial lung disease, mass-like cavities in the lung apices, and multiple additional pulmonary nodules; outpatient pulmonology consult is recommended. DIAGNOSES: * Acute COPD exacerbation. * Pulmonary fibrosis. * Ersqm-bv-ebhghgv respiratory failure. * Nicotine dependence. PLAN: The patient was seen in the Emergency Room, full assessment was completed. The patient does have an underlying history of many years of tobacco use since age 20, has been a half a pack to a pack a day smoker. The patient also did have a history of apparently left breast cancer, which required 2 lumpectomy procedures with multiple sessions of radiation therapy to the left breast. The patient states the imaging is consistent with COPD, emphysema, as well as pulmonary fibrosis, likely causing the patient to have chronic respiratory failure. The patient says in the past she has seen Pulmonology, but has never been prescribed oxygen even though her sats are typically low. Additionally, the patient, during my assessment, was not short of breath, not using extra respiratory muscles of breathing, and that was not her chief complaint on presentation. Again, condition is likely induced by her underlying COPD fibrosis and continuous use of emphysema. The patient also apparently developed tuberculosis, which required many months of treatment per the patient and CT imaging does also show some sort of cavitation/masses in the apices of the lungs, likely from her previous history of TB infection. The patient has been ordered to have oxygen to be delivered to her in the hospital ER and to be concentrated to her home. The patient is to be placed on 3-4 liters nasal cannula oxygen continuously to maintain pulse ox above 90%. The patient will be arranged for a close PCP followup within the next 3-5 days, a Pulmonology referral within the next 1-2 weeks. Additionally, the patient will be given a Medrol Dosepak, Levaquin 500 mg p.o. daily for 7 days prophylactically, and Mucinex DM 1 tablet p.o. p.r.n. b.i.d. for congestion. The patient is to return to Emergency Room in case of any progression of shortness of breath, development of chest pain, fevers, chills, nausea, vomiting, or any other concerns and/or questions. [facility] case management will arrange the patient close followups as discussed above. Cameron Romeo MD LM/ARAM/EMMIE TID: [id number] RECEIPT: [id number]
== END 2025-03-01 03:11 | disposition home or self-care (01) ==
LOC: ER 18:03
DX: J44.1 Chronic obstructive pulmonary disease with (acute) exacerbation (principal); R09.02 Hypoxemia; D75.1 Secondary polycythemia; M79.89 Other specified soft tissue disorders; F17.211 Nicotine dependence, cigarettes, in remission; F10.90 Alcohol use, unspecified, uncomplicated; Z79.899 Other long term (current) drug therapy; Z98.890 Other specified postprocedural states; Z86.61 Personal history of infections of the central nervous system; Z85.3 Personal history of malignant neoplasm of breast
CPT/HCPCS: 36415; 36600; 71045; 71275; 80053; 82805; 83605; 83880; 85025; 85379; 86141; 93971; 94640; 96374; 99291; J2919; Q9967

== ENCOUNTER 2025-05-04 17:13 | Emergency (ER) | payer BC ==
[~2025-05-04] VITALS: Ht 154.9 cm; Wt 73.0 kg
[~2025-05-04 17:13] MED LIST changes: +DEXT60TA4 PO; +LEVO500T91 PO; +METH4PAK PO
--- NOTE | 2025-05-04 18:33 | DVH ---
EXAM: CT HEAD WITHOUT CONTRAST INDICATION: NIETO TECHNIQUE: CT of the head without intravenous contrast. Radiation Dose : 1. Head: CT Dose: CTDI volume is 49.5 mGy. Dose-length product is 792.9 mGy*cm The dose indicators for CT are the volume Computed Tomography (CT) Dose Index (CTDIvol) and the Dose Length Product (DLP), and are measured in units of mGy and mGy-cm, respectively. These indicators are not patient dose, but values generated from the CT scanner acquisition factors. The report includes radiation exposure data for exposures received during this examination. COMPARISON: None FINDINGS: Evaluation is degraded by motion and streak artifact. The cerebral parenchyma appears to be normal configuration and attenuation. The ventricles, cisterns, and sulci appear age-appropriate. There is no evidence for acute territorial infarct, hemorrhage, or mass effect. The orbits are normal. The visualized paranasal sinuses and mastoid air cells are clear. The soft tissues and osseous structures appear within normal limits. IMPRESSION: 1. Artifact degraded evaluation. Within this limitation, no CT evidence of acute territorial infarct, intracranial hemorrhage, or mass effect. If clinical symptoms persist, MRI may be beneficial in further evaluation. Radiation optimization: All CT scans at this facility use at least one of these dose optimization techniques: automated exposure control mA and/or kV adjustment per patient size (includes targeted exams where dose is matched to clinical indication) or iterative reconstruction.
--- NOTE | 2025-05-04 18:36 | ED.PDOC ---
History of Present Illness HPI Comments 64 year old female with PMHx COPD, polycythemia, breast cancer presents to the ED via EMS with a chief complaint of headache onset 3 days. Patient states she has been experiencing RT sided headache for the past 3 days, described as sharp, stabbing pain, rates pain 5/10. Currently on 2L home O2. Denies blurred vision, dizziness, vision changes, LOC, head injury, nausea, vomiting, chest pain, dizziness. No other symptoms or modifying factors present at this time. Chief Complaint: Headache Time Seen by MD: 18:30 Primary Care Provider: DR SIERRA Reviewed Notes: Medications, Allergies Allergies: Coded Allergies: NO KNOWN ALLERGIES (Unverified , 04/30/19) Home Meds Active Scripts Dextromethorphan-Guaifenesin (Mucinex Dm Maximum Streng) 1 Tab Tab, 1 TAB PO BID, #30 TAB Prov:ROBERTO LOPEZ MD 03/01/25 Levofloxacin Hemihydrate (LEVAQUIN 500 MG) 500 Mg Tab, 1 TAB PO DAILY, #7 TAB Prov:ROBERTO LOPEZ MD 03/01/25 Methylprednisolone (Medrol Dosepak) 4 Mg Chilo, 4 MG PO UD, #21 TAB UAD Prov:ROBERTO LOPEZ MD 03/01/25 Reported Medications Albuterol Sulfate (VENTOLIN MDI) 90 Mcg Ih, 2 PUFF IN PRN, INH 04/30/19 Ghsoxwkismb-Nqrwvxqdkiob-Txmhm (Trelegy Ellipta 100-62.5-25 Mcg/INH) 1 Aer Aer, 1 AER IN DAILY, AER 04/30/19 Information Source: Patient, Emergency Med Personnel Mode of Arrival: EMS Severity: Moderate Timing: Days Duration: Since onset Prehospital treatment: None Past Medical History PAST MEDICAL HISTORY: Cancer, COPD Surgical History: Hernia Repair 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 MAINTENANCE WORKER History Family History Family History: No family hx of Cancer Social History Smoker: Cigarettes, Greater Than 1 Pack/Day Alcohol: Occasionally Drugs: Denies Drug Use Lives In: Home Constitutional: denies: chills, diaphoresis, fatigue, fever, malaise, sweats, weakness, others EENTM: denies: blurred vision, double vision, ear bleeding, ear discharge, ear drainage, ear pain, ear ringing, eye pain, eye redness, hearing loss, mouth pain, mouth swelling, nasal discharge, nose bleeding, nose congestion, nose pain, photophobia, tearing, throat pain, throat swelling, voice changes, others Respiratory: denies: cough, hemoptysis, orthopnea, SOB at rest, shortness of breath, SOB with excertion, stridor, wheezing, others Cardiovascular: denies: chest pain, dizzy spells, diaphoresis, Dyspnea on exertion, edema, irregular heart beat, left arm pain, lightheadedness, palpitations, PND, syncope, others Gastrointestinal: denies: abdomen distended, abdominal pain, blood streaked bowels, constipated, diarrhea, dysphagia, difficulty swallowing, hematemesis, melena, nausea, poor appetite, poor fluid intake, rectal bleeding, rectal pain, vomiting, others Genitourinary: denies: abnormal vagina bleeding, burning, dyspareunia, dysuria, flank pain, frequency, hematuria, incontinence, pain, , vagina discharge, urgency, others Neurological: reports: headache; denies: dizziness, fainting, left sided numbness, left sided weakness, numbness, paresthesia, pre-existing deficit, right sided numbness, right sided weakness, seizure, speech problems, tingling, tremors, weakness, others Musculoskeletal: denies: back pain, gout, joint pain, joint swelling, muscle pain, muscle stiffness, neck pain, others Integumetry: denies: bruises, change in color, change in hair/nails, dryness, laceration, lesions, lumps, rash, wounds, others Allergic/Immunocompromised: denies: Difficulty Healing, Frequent Infections, Hives, Itching, others Hematologic/Lymphatic: denies: anemia, blood clots, easy bleeding, easy bruising, swollen glands, others Endocrine: denies: excessive hunger, excessive sweating, excessive thirst, excessive urination, flushing, intolerance to cold, intolerance to heat, unexplained weight gain, unexplained weight loss, others Psychiatric: denies: anxiety, bipolar disorder, depression, hopeless, panic disorder, schizophrenia, sleepless, suicidal, others All Other Systems: Reviewed and Negative Physical Exam General Appearance: No Apparent Distress HEENT: Normal ENT Inspection, Pharynx Normal, TMs Normal Neck: Full Range of Motion, Non-Tender, Normal, Normal Inspection Respiratory: Chest Non-Tender, Lungs Clear, No Accessory Muscle Use, No Respiratory Distress, Normal Breath Sounds Cardiovascular: No Edema, No JVD, No Murmur, No Gallop, Normal Peripheral Pulses, Regular Rate/Rhythm Breast Exam: Deferred Gastrointestinal: No Organomegaly, Non Tender, No Pulsatile Mass, Normal Bowel Sounds, Soft Genitalia: Deferred Pelvic: Deferred Rectal: Deferred Extremities: No calf tenderness, Normal capillary refill, Normal inspection, Normal range of motion, Non-tender, No pedal edema Musculoskeletal : Apperance: Normal Neurologic: Alert, head stock operator II-XII nml as Tested, No Motor Deficits, Normal Affect, Normal Mood, No Sensory Deficits Cerebellar Function: Normal Reflexes: Normal Skin: Dry, Normal Color, Warm Lymphatic: No Adenopathy Was a procedure done? Was a procedure done?: No Differential Dx Considerations may include: CVA, intracranial bleed, fracture X-Ray, Labs, Meds, VS Vital Signs Date Time Temp Pulse Resp B/P (MAP) Pulse Ox O2 Delivery O2 Flow Rate FiO2 05/04/25 17:23 98.1 88 15 128/90 91 98.1 Scan of the head is negative The patient's vital signs are within normal range The patient is being discharged follow up with the primary care doctor The patient is return to the emergency department's the condition worsens The patient understands and agrees with the management Images Reviewed?: Images reviewed and evaluated by me Time of 1ST Reevaluation: 19:00 Reevaluation 1ST: Unchanged Patient Education/Counseling: Diagnosis, Treatment, Prognosis, Need For Follow Up Family Education/Counseling: No Family Present SEPSIS Sepsis Screen Date sepsis recognized/suspect: May 04, 2025 Time Sepsis recognized/suspect: 1726 Recent Procedure: No On Antibiotic Therapy: No Respiratory Rate >20: No Heart Rate >90: No Temp<36 C (96.8 F) or >38.3 C: No SBP <90 or MAP <65 mmHG: No New Acute Mental Status Change: No Is the patient on CPAP, BIPAP,: No Physician Orders Head Without Contrast (05/04/25 17:40) Vital Signs Date Time Temp Pulse Resp B/P (MAP) Pulse Ox O2 Delivery O2 Flow Rate FiO2 05/04/25 17:23 98.1 88 15 128/90 91 98.1 Departure 1 Departure Time of Disposition: 19:37 Impression: Primary Impression: Cephalgia Qualified Codes: R51.9 - Headache, unspecified Disposition: 01 HOME / SELF CARE / HOMELESS Condition: Fair Discharged With: Self Critical Care Note Critical Care Time?: No Stability Stability form required: No Heart Score Heart Score: Heart Score Response (Comments) Value History N/A 0 EKG N/A 0 Age N/A 0 Risk Factors N/A 0 Troponin N/A 0 Total 0 I personally scribed for TANIKA LUNA MD ([email or web address]) on 05/04/25 at 18:36. Electronically submitted by Roxana Cagle ([email or web address]). TANIKA LUNA MD May 04, 2025 18:36
[2025-05-04 20:03] VITALS: BP 113/73; TEMP 98.3; O2SAT 93
[2025-05-04 20:29] VITALS: PULSE 76; RESP 18
== END 2025-05-04 20:53 | disposition home or self-care (01) ==
LOC: ER 17:13 → EDBD 17:13 → ER 20:53
DX: R51.9 Headache, unspecified (principal); F17.210 Nicotine dependence, cigarettes, uncomplicated; J44.9 Chronic obstructive pulmonary disease, unspecified; Z98.890 Other specified postprocedural states; Z79.899 Other long term (current) drug therapy
CPT/HCPCS: 70450